=== PATIENT | female | born 1975 | race Caucasian/White ===

== ENCOUNTER 2019-04-27 11:53 | Emergency (ER) | payer OTHER ==
[~2019-04-27] VITALS: Ht 157.5 cm; Wt 68.0 kg
[2019-04-27 12:15] VITALS: BP 133/93
--- NOTE | 2019-04-27 12:48 | NUR ---
PT PRESENTED TO THE ED WITH THE CHIEF C/O SWELLING RIGHT MIDDLE FINGER SINCE YESTERDAY S/P BEE STING. RED AND SWOLLEN MIDDLE FINGER NOTED. WARM TO TOUCH. UNABLE TO MOVE AFFECTED FINGER FREELY. +CIRCULATION, +SENSATION. PT IS ALLERGIC TO BEE STING. DENIES SOB OR DIFFICULTY BREATHING. DENIES RECENT FEVER. DENIES N/V. S/O DIARRHEA X2 TODAY. STATES PAIN OF 06/11 AT THIS TIME. Addendum: 04/27/19 at 1255 by MOKAValerio C/O DIARRHEA
--- NOTE | 2019-04-27 12:51 | NUR ---
PT BEING SEEN BY ER AT THIS TIME.
[2019-04-27 14:05] VITALS: BP 120/94
--- NOTE | 2019-04-27 14:06 | NUR ---
Patient discharged with v/s stable. Written and verbal after care instructions given and explained. Patient alert, oriented and verbalized understanding of instructions. Ambulatory with steady gait. All questions addressed prior to discharge. ID band removed. Patient advised to follow up with PMD. Rx of EPIPEN 2-PACK AUTO-INJECTOR, BENADRYL AND [employer] HYDROCORTISONE 1% TOPICAL CREAM given. Patient educated on indication of medication including possible reaction and side effects. Opportunity to ask questions provided and answered.
== END 2019-04-27 14:06 | disposition home or self-care (01) ==
LOC: MED 11:53
DX: T63.441A Toxic effect of venom of bees, accidental (unintentional), initial encounter (principal); T78.40XA Allergy, unspecified, initial encounter; Y92.89 Other specified places as the place of occurrence of the external cause
CPT/HCPCS: 99282